=== PATIENT | female | born 1955 | race Caucasian/White ===

== ENCOUNTER 2019-10-04 07:24 | Inpatient (IN) | payer OTHER ==
[2019-10-01 13:41] LABS: BASOPHILS # (AUTO) 0.08 x10^3/uL (0-0.1); BASOPHILS % (AUTO) 1 % (0-1); EOSINOPHILS # (AUTO) 0.56 x10^3/uL (0-0.4); EOSINOPHILS % (AUTO) 8 % (1-7); LYMPHOCYTES % (AUTO) 32 % (22-44); MD NO; MEAN CORPUSCULAR HEMOGLOBIN 30.2 pg (27.0-34.8); MEAN CORPUSCULAR HGB CONC 33.1 g/dL (32.4-35.8); MEAN CORPUSCULAR VOLUME 91.4 fL (80-100); MEAN PLATELET VOLUME 8.2 fL (7.4-10.4); MONOCYTES % (AUTO) 6 % (2-9); NEUTROPHILS # (AUTO) 3.74 x10^3/uL (1.8-6.8); NEUTROPHILS % (AUTO) 53 % (42-75); PLATELET COUNT 313 x10^3/uL (130-400); RED BLOOD COUNT 5.36 x10^6/uL (3.82-5.3); RED CELL DISTRIBUTION WIDTH 12.5 % (9.6-15.2)
[2019-10-01 13:42] LABS: HCT (SEDRATE) 49.5 % (34.6-47.8)
[2019-10-01 13:51] LABS: ANION GAP 6 mmol/L (5-15); CALCIUM 9.1 mg/dL (8.5-10.1); CHLORIDE 109 mmol/L (98-107); CREATININE 0.87 mg/dL (0.55-1.02)
[2019-10-01 13:52] LABS: ALANINE AMINOTRANSFERASE 29 U/L (12-78); ALBUMIN 4.1 g/dL (3.4-5.0)
[2019-10-01 13:54] LABS: ALKALINE PHOSPHATASE 157 U/L (45-117); BILIRUBIN,TOTAL 0.3 mg/dL (0.2-1.0); TOTAL PROTEIN 7.7 g/dL (6.4-8.2)
[2019-10-01 14:08] LABS: INTERNATIONAL NORMALIZED RATIO 0.93 (0.93-1.1); PROTHROMBIN TIME 9.8 Seconds (9.6-11.5)
[~2019-10-04] VITALS: Ht 157.5 cm; Wt 67.6 kg
[~2019-10-04 07:24] MED LIST: GABA300C10 PO; LEVO125T5 PO; METH500T7 PO; TRAM50TA2 PO
[2019-10-04 07:56] VITALS: BP 123/74
[2019-10-04] MEDS ORDERED: VANCOMYCIN PMX 1GM/200ML 200 ML IV ONE (08:00)
[2019-10-04] MEDS ORDERED: GABAPENTIN 300 MG CAPSULE PO ONE (08:00)
[2019-10-04] MEDS ORDERED: SCOPOLAMINE PATCH, 1.5MG PATCH.TD72 TD ONE (08:00)
[2019-10-04] MEDS ORDERED: ACETAMINOPHEN 500 MG TABLET PO ONE (08:00)
[2019-10-04] MEDS ORDERED: MIDAZOLAM 1 MG/ML, 2ML ONE (08:25)
[2019-10-04] MEDS ORDERED: FENTANYL PF 250 MCG/5ML ONE (08:25)
[2019-10-04] MEDS ORDERED: THROMBIN 5,000 UNIT VIAL TP ONE (10:18)
[2019-10-04] MEDS ORDERED: BUPIVACAINE/PF 0.5% ONE (10:18)
[2019-10-04] MEDS ORDERED: DEXAMETHASONE 4 MG/ML, 5ML ONE (10:18)
[2019-10-04] MEDS ORDERED: EPINEPHRINE 1 MG/ML, 1ML ONE (10:18)
[2019-10-04] MEDS ORDERED: TRANEXAMIC ACID 100 MG/ML, 10ML ONE (10:18)
[2019-10-04] MEDS ORDERED: BACITRACIN 50,000 UNIT ONE (10:19)
[2019-10-04] MEDS ORDERED: PROPOFOL 50 ML ONE ×2 (10:42→12:04)
[2019-10-04] MEDS ORDERED: CEFAZOLIN 1,000 MG ONE (10:49)
[2019-10-04] MEDS ORDERED: DEXAMETHASONE 4 MG/ML, 1ML ONE (10:49)
[2019-10-04] MEDS ORDERED: LIDOCAINE-MPF 2% ,5ML ONE (10:49)
[2019-10-04] MEDS ORDERED: SUCCINYLCHOLINE 20 MG/ML, 10ML ONE (10:49)
[2019-10-04] MEDS ORDERED: PROPOFOL 10 MG/ML, 20ML ONE (10:49)
[2019-10-04] MEDS ORDERED: ONDANSETRON 2MG/ML, 2ML ONE (10:49)
[2019-10-04] MEDS ORDERED: ONDANSETRON 2MG/ML, 2ML IVPush PRN (11:00)
[2019-10-04] MEDS ORDERED: PROMETHAZINE 25 MG/ML, 1ML IM PRN (11:00)
[2019-10-04] MEDS ORDERED: BISACODYL 10 MG SUPP PR PRN (11:00)
[2019-10-04] MEDS ORDERED: DIPHENHYDRAMINE 50 MG CAPSULE PO PRN (11:00)
[2019-10-04] MEDS ORDERED: PHARMACY MAY ADJ FOR RENAL FX MC PRN (11:00)
[2019-10-04] MEDS ORDERED: LABETALOL 5MG/ML, 20ML IVPush PRN (11:00)
[2019-10-04] MEDS ORDERED: MAGNESIUM HYDROXIDE 8%, 30ML UDC PO PRN (11:00)
[2019-10-04] MEDS ORDERED: DIPHENHYDRAMINE 50 MG/ML, 1ML IVPush PRN (11:00)
[2019-10-04] MEDS ORDERED: OXYcodone IR 5MG TABLET PO PRN (11:00)
[2019-10-04] MEDS ORDERED: DIAZEPAM 5 MG TABLET PO PRN (11:00)
[2019-10-04] MEDS ORDERED: LORazepam 1MG TABLET PO PRN (11:00)
[2019-10-04] MEDS ORDERED: DIPHENHYDRAMINE 50 MG/ML, 1ML IM PRN (11:00)
[2019-10-04] MEDS ORDERED: ZOLPIDEM 5MG TABLET PO PRN (11:00)
[2019-10-04] MEDS ORDERED: METHOCARBAMOL 1,000 MG in DEXTROSE 5% 100 ML IV ONE (11:00)
[2019-10-04] MEDS ORDERED: LORazepam 2 MG/ML, 1ML IVPush PRN (11:30)
[2019-10-04] MEDS ORDERED: hydrALAzine 20 MG/ML, 1ML IV PRN (11:30)
[2019-10-04] MEDS ORDERED: ONDANSETRON 2MG/ML, 2ML IV PRN (11:30)
[2019-10-04] MEDS ORDERED: MEPERIDINE/PF 25MG/ML,1ML IVPush PRN (11:30)
[2019-10-04] MEDS ORDERED: OXYcodone 5 MG/5 ML ORAL.SOL UDC PO PRN (11:30)
[2019-10-04] MEDS ORDERED: METOCLOPRAMIDE 5 MG/ML, 2ML IV PRN (11:30)
[2019-10-04] MEDS ORDERED: HYDROmorphone 1 MG/ML, 1ML INJ IVPush PRN (11:30)
[2019-10-04] MEDS ORDERED: LABETALOL 5MG/ML, 20ML IV PRN (11:30)
[2019-10-04] MEDS ORDERED: methylPREDNISolone *ACETATE* 40 MG/ML ONE (11:33)
[2019-10-04] MEDS ORDERED: FENTANYL PF 100 MCG/2ML ONE (14:13)
[2019-10-04] MEDS ORDERED: KETOROLAC 30 MG/1 ML ONE (14:13)
[2019-10-04] MEDS ORDERED: ACETAMINOPHEN 650 MG/20.3 ML UDC ONE (14:13)
[2019-10-04] MEDS ORDERED: OXYcodone 5 MG/5 ML ORAL.SOL UDC ONE (14:14)
[2019-10-04] MEDS: ACETAMINOPHEN 500 MG TABLET PO PRN (14:16)
[2019-10-04] MEDS: FENTANYL PF 100 MCG/2ML IV PRN ×4 (14:22→14:54)
[2019-10-04] MEDS: KETOROLAC 30 MG/1 ML IVPush PRN ×2 (14:23→22:15)
[2019-10-04] MEDS ORDERED: HYDROmorphone 1 MG/ML, 1ML INJ ONE (14:54)
[2019-10-04] MEDS: morphine SULFATE 10 MG/ML, 1ML IVPush PRN ×2 (16:24→19:39)
[2019-10-04] MEDS: DEXAMETHASONE 4 MG/ML, 1ML IVPush PRN (16:24)
[2019-10-04] MEDS: OXYcodone IR 5MG TABLET PO PRN ×2 (17:24→22:15)
[2019-10-04] MEDS: D5%-0.9% NACL+KCL 20MEQ 1,000 ML IV SCH (17:25)
[2019-10-04] MEDS: GABAPENTIN 300 MG CAPSULE PO SCH (17:36)
[2019-10-04] MEDS ORDERED: LACTATED RINGERS 1,000 ML IV SCH (18:00)
[2019-10-04] MEDS: CEFAZOLIN PMX 1GM/50ML 50 ML IVPB SCH (18:51)
[2019-10-04 19:54] VITALS: BP 149/76
[2019-10-04] MEDS: SENNA/DOCUSATE TABLET PO PRN (21:07)
[2019-10-05] MEDS: GABAPENTIN 300 MG CAPSULE PO SCH ×2 (01:01→09:24)
[2019-10-05] MEDS: ACETAMINOPHEN 500 MG TABLET PO PRN (01:04)
[2019-10-05 03:07] VITALS: BP 125/71
[2019-10-05] MEDS: OXYcodone IR 5MG TABLET PO PRN ×3 (03:07→12:40)
[2019-10-05] MEDS: D5%-0.9% NACL+KCL 20MEQ 1,000 ML IV SCH ×2 (03:07→13:00)
[2019-10-05] MEDS: CEFAZOLIN PMX 1GM/50ML 50 ML IVPB SCH (03:07)
[2019-10-05 05:52] LABS: BASOPHILS # (AUTO) 0.03 x10^3/uL (0-0.1); BASOPHILS % (AUTO) 0 % (0-1); EOSINOPHILS % (AUTO) 0 % (1-7); LYMPHOCYTES # (AUTO) 1.15 x10^3/uL (1-3.4); LYMPHOCYTES % (AUTO) 11 % (22-44); MD NO; MEAN CORPUSCULAR HEMOGLOBIN 30.1 pg (27.0-34.8); MEAN CORPUSCULAR HGB CONC 32.5 g/dL (32.4-35.8); MEAN CORPUSCULAR VOLUME 92.6 fL (80-100); MEAN PLATELET VOLUME 7.7 fL (7.4-10.4); MONOCYTES # (AUTO) 0.89 x10^3/uL (0.2-0.8); MONOCYTES % (AUTO) 8 % (2-9); NEUTROPHILS # (AUTO) 8.74 x10^3/uL (1.8-6.8); NEUTROPHILS % (AUTO) 81 % (42-75); PLATELET COUNT 283 x10^3/uL (130-400); RED BLOOD COUNT 4.52 x10^6/uL (3.82-5.3); RED CELL DISTRIBUTION WIDTH 12.5 % (9.6-15.2)
[2019-10-05] MEDS ORDERED: LEVOTHYROXINE 125 MCG TABLET PO SCH (06:00)
[2019-10-05 06:53] VITALS: BP 130/75
[2019-10-05] MEDS: SENNA/DOCUSATE TABLET PO PRN (09:22)
[2019-10-05] MEDS: KETOROLAC 30 MG/1 ML IVPush PRN (09:24)
[2019-10-05] MEDS: DEXAMETHASONE 4 MG/ML, 1ML IVPush PRN (11:56)
[2019-10-05 13:14] VITALS: BP 112/69
[2019-10-05] MEDS ORDERED: OXYC10TA6 PO (14:12)
[2019-10-05] MEDS ORDERED: DIAZ5TAB PO (14:13)
[2019-10-05 14:39] VITALS: BP 134/69
== END 2019-10-05 14:45 | disposition home or self-care (01) | DRG 472 ==
LOC: OUT 07:24 → ORIP 10:52 → 4NE 15:46
PROVIDERS: ADMIT Orthopaedic Surgery Orthopaedic Surgery of the Spine; ATTEND Orthopaedic Surgery Orthopaedic Surgery of the Spine
PROC: 0RB30ZZ Excision of Cervical Vertebral Disc, Open Approach (ICD-10-PCS; 2019-10-04)
PROC: 00NW0ZZ Release Cervical Spinal Cord, Open Approach (ICD-10-PCS; 2019-10-04)
PROC: 01N10ZZ Release Cervical Nerve, Open Approach (ICD-10-PCS; 2019-10-04)
PROC: 4A11X4G Monitoring of Peripheral Nervous Electrical Activity, Intraoperative, External Approach (ICD-10-PCS; 2019-10-04)
PROC: 0RG20A0 Fusion of 2 or more Cervical Vertebral Joints with Interbody Fusion Device, Anterior Approach, Anterior Column, Open Approach (ICD-10-PCS; principal; 2019-10-04 09:30)
DX: M50.11 Cervical disc disorder with radiculopathy, high cervical region (principal); M50.021 Cervical disc disorder at C4-C5 level with myelopathy; M50.01 Cervical disc disorder with myelopathy, high cervical region; M47.12 Other spondylosis with myelopathy, cervical region; M50.121 Cervical disc disorder at C4-C5 level with radiculopathy; M48.02 Spinal stenosis, cervical region; M47.22 Other spondylosis with radiculopathy, cervical region; R13.10 Dysphagia, unspecified; G89.29 Other chronic pain; M54.9 Dorsalgia, unspecified; E03.9 Hypothyroidism, unspecified; Z88.1 Allergy status to other antibiotic agents
CPT/HCPCS: 36415; 72040; J3490; S0020; 71046; 80053; 83036; 85025; 85610; 85651; 85730; 93005; 95938; 95941; C1713; C1776; G0378; J0171; J0690; J1100; J1170; J1885; J2250; J2405; J2704; J3010; J3370; C1760; C1762; J0330; J1030; J2270; J2800; J3480; J7120